=== PATIENT | female | born 1945 | race Two or more races ===

== ENCOUNTER 2021-08-16 06:23 | Day surgery (SDC) | payer OTHER ==
[~2021-08-16 06:23] MED LIST: COZAAR100 MG PO
== END 2021-08-16 22:05 | disposition home or self-care (01) ==
LOC: CIR.AMB 06:23
PROVIDERS: ATTEND Surgery
DX: C50.411 Malignant neoplasm of upper-outer quadrant of right female breast (principal); Z20.822 Contact with and (suspected) exposure to COVID-19; C77.3 Secondary and unspecified malignant neoplasm of axilla and upper limb lymph nodes